=== PATIENT | male | born 1940 | race American Indian/Alaskan Native ===

== ENCOUNTER 2018-02-09 08:09 | Day surgery (SDC) | payer OTHER ==
[2018-02-08 15:09] VITALS: BMI 28.5
[2018-02-09] MEDS ORDERED: BUPIVACAINE HCL/PF 0.5% (5MG/ML) 10 ML VIAL ONE (08:57)
--- NOTE | 2018-02-09 09:47 | HP ---
History & Physical Update - History History: No Change - Physical Physical: No Change - Assessment Assessment: No Change - Plan Plan: No Change (Patient is planned to have repair of bilateral inguinal hernia with mesh. Consent obtained.)
[2018-02-09] MEDS ORDERED: DEXAMETHASONE SOD PHOSPHATE 4 MG/1 ML VIAL ONE ×2 (09:52→11:39)
[2018-02-09] MEDS ORDERED: ONDANSETRON 4 MG/2 ML VIAL ONE ×2 (09:52→11:39)
[2018-02-09] MEDS ORDERED: PROPOFOL 20 ML ONE (09:53)
[2018-02-09] MEDS ORDERED: ceFAZolin SODIUM 1 GM VIAL ONE (09:54)
[2018-02-09] MEDS ORDERED: ROCURONIUM BROMIDE 50 MG/5 ML VIAL ONE (09:54)
[2018-02-09] MEDS ORDERED: ceFAZolin SODIUM 1 GM VIAL IVPB ONE (09:59)
[2018-02-09] MEDS ORDERED: ePHEDrine SULFATE 50 MG/1 ML AMPULE ONE (10:11)
[2018-02-09] MEDS ORDERED: oxyCODONE HCL 5 MG TABLET PO PRN (10:45)
[2018-02-09] MEDS ORDERED: LACTATED RINGERS SOLUTION 1,000 ML IV SCH (10:45)
[2018-02-09] MEDS ORDERED: ONDANSETRON 4 MG/2 ML VIAL IVPUSH PRN (10:45)
[2018-02-09] MEDS ORDERED: PROMETHAZINE HCL 25 MG/1 ML VIAL IVPUSH PRN (10:45)
[2018-02-09] MEDS ORDERED: BUPIVACAINE HCL/PF (5 MG/ML) 30 ML VIAL IJ ONE (10:47)
[2018-02-09] MEDS ORDERED: NEOSTIGMINE METHYLSULFATE 0.5 MG/ML - 10 ML MDV ONE (11:51)
[2018-02-09] MEDS ORDERED: GLYCOPYRROLATE 0.2 MG/1 ML VIAL ONE (11:51)
--- NOTE | 2018-02-09 11:56 | OP ---
Operative Note - Note: Operative Date: 02/09/18 Pre-Operative Diagnosis: Bilateral inguinal hernia. Operation: Laparoscopic repair of bilateral inguinal hernia with mesh. Findings: Bilateral direct inguinal hernia, left incarcerated. Surgeon: Kimber Veag Waste Recycler: Andre Menjivar Anesthesiologist/COLLEGE ARCHIVIST: Nelson Donnelly Anesthesia: General Specimens Removed: None Estimated Blood Loss (mls): 5 Operative Report Dictated: Yes
--- NOTE | 2018-02-09 13:28 | OP ---
DATE OF OPERATION: 02/09/2018 PREOPERATIVE DIAGNOSIS: Bilateral inguinal hernias, the right side is incarcerated. POSTOPERATIVE DIAGNOSIS: Bilateral inguinal hernias, the right side is incarcerated. OPERATIVE PROCEDURE: Laparoscopic repair of bilateral inguinal hernias with mesh. SURGEON: Jeff Vega MD CUSTOMER ASSOCIATE: LENNIE Mak ANESTHESIA: General anesthesia. ANESTHESIOLOGIST: Nelson Donnelly MD OPERATIVE DESCRIPTION: This 77-year-old man had bilateral inguinal hernias. The right side was painful and moderately prominent and incarcerated. The left side , he had a bulge bilaterally suggestive of bilateral hernia. Patient was brought in for laparoscopic repair of bilateral inguinal hernias. Consent was obtained. Risks , benefits, and complications were discussed with the patient. Patient was given a gram of Ancef. Then, anesthesia was administered. A Anthony catheter was placed was in the bladder. This was removed right after the surgery. The abdomen and perineum were painted and draped. A small 2-cm incision was made 2 fingerbreadths below the umbilicus in horizontal fashion. This was deepened through the skin and subcutaneous tissue and the anterior rectus sheath on both sides of the midline. Then, between the rectus muscle, the junction of the posterior rectus sheath and the peritoneum was identified, and the space was created between the peritoneum and the posterior rectus sheath. This was carried all the way down to the pubic symphysis using the spacer. Two stay sutures of 2-0 Vicryl were obtained on the anterior rectus sheath on either side of the midline. Once spacer was placed all the way down into the pelvis, this was inflated to create a preperitoneal space on either side. Once this was done, spacer was removed, and a 10-12 mm trocar with a balloon at the end was placed with the balloon inflated, and the trocar had been placed. The 10-mm camera was introduced into the space all the way down to the pubic symphysis. Under direct vision, two 5-mm trocars were introduced on either side of the midline 2 cm away from the midline. This was noted entering the abdominal cavity into the preperitoneal space. Then, with blunt dissection, the pubic symphysis and the pubic crest on either side was identified and dissected. Then, the anterior abdominal wall on its posterior aspect was completely cleared using sharp and blunt dissection. The peritoneum was retracted cephalad. On the left side, there was a little protrusion of the omentum near the sac through the internal ring. This was then retracted cephalad towards the viscera, thus releasing the hernia. On the right side, the patient had incarceration of preperitoneal fat into direct hernia. This was gradually reduced into the abdominal cavity. This was quite medial to the pubic crest on the medial side of the inguinal ligament. Once this was reduced, the cord structures were again identified, and there was no indirect hernia on the right side. The space was completely cleaned, and the posterior wall of the abdomen was clearly visualized. The peritoneum was retracted cephalad, thus, making the space ready for placement of a mesh behind the abdominal wall. The right- sided mesh was first placed after rotating it around the gland and introducing it through the 10-mm port all the way down to the pubic symphysis. The letter M: was found facing the scope with the arrow facing medially. This was then grasped and anchored over the pubic crest with a metallic tacker. The mesh was then unrolled across the posterior abdominal wall and anchored laterally with the AbsorbaTack suture. The mesh was adequately placed across the defect. A similar procedure was done on the left side, as well, taking the left-sided medium 3DMax mesh. This was again anchored medially over the pubic crest and unrolled laterally and anchored to the lateral abdominal wall with AbsorbaTack tacker. The mesh was adequately placed over the defect. Hemostasis was satisfactory throughout the procedure. Once this was done, the peritoneum was carefully deflated by removing the CO2 and stopping the inflation. The peritoneum was then found lying against the mesh as it expanded. The instruments were then withdrawn under direct vision. Estimated blood loss was 5-10 mL. The anterior rectus sheath was approximated with interrupted 2-0 Vicryl sutures. Then, 0.5% Marcaine was entered into the wound. Skin was approximated by buried interrupted 4-0 Monocryl sutures. Dermabond was applied across the skin edges. Patient tolerated the procedure well, was extubated, and sent to recovery room in satisfactory and stable condition. The Anthony catheter was removed at the completion of the procedure. Ilya [id number] cc: Abby Nava MD MTDD
[2018-02-09 18:24] VITALS: BP 131/77; PULSE 90
[2018-02-09 19:08] VITALS: TEMP 98.1
== END 2018-02-09 18:20 | disposition home or self-care (01) ==
LOC: JASU-SURG 08:09
PROVIDERS: ATTEND Specialist
PROC: 0YUA4JZ Supplement Bilateral Inguinal Region with Synthetic Substitute, Percutaneous Endoscopic Approach (ICD-10-PCS; principal; 2018-02-09 09:30)
DX: K40.00 Bilateral inguinal hernia, with obstruction, without gangrene, not specified as recurrent (principal); I10 Essential (primary) hypertension; E11.9 Type 2 diabetes mellitus without complications; Z79.84 Long term (current) use of oral hypoglycemic drugs
CPT/HCPCS: 82962; 94760